=== PATIENT | male | born 1950 | race Caucasian/White ===

== ENCOUNTER 2017-09-06 19:14 | Emergency (ER) | payer OTHER ==
[2017-09-06 19:32] VITALS: BP 131/73
--- NOTE | 2017-09-06 20:04 | ED Physician Documentation ---
PD HPI Fall - Stated complaint Stated Complaint: RT SIDE PX - Chief complaint Chief Complaint: Trauma Ch/Bk - History obtained from History obtained from: Patient - History of Present Illness Mechanism of injury: Lost balance Fall distance: 5 to 10ft Where injury occurred: Home Timing - onset: Enter time (14:30), Today Injury(ies) location: Back Quality of pain: Pain, Aching Associated symptoms: No: LOC, AMS, Neck pain, Weakness Symptoms improve with: Rest Worsens with: Movement Similar symptoms before: Has not had sx before - Additional information Additional information: while working in [employer], patient fell from [employer] to next floor down, his right flank/back struck the attic floor as he fell (and this is the painful injury he sustained) Review of Systems Cardiac: reports: Reviewed and negative Respiratory: reports: Reviewed and negative GI: reports: Reviewed and negative : denies: Hematuria Musculoskeletal: reports: Back pain. denies: Neck pain, Extremity pain Neurologic: reports: Reviewed and negative PD PAST MEDICAL HISTORY - Past Medical History Past Medical History: Yes Cardiovascular: High cholesterol - Past Surgical History Past Surgical History: Yes General: Appendectomy Ortho: Knee replacement - Present Medications Home Medications: Ambulatory Orders Medication Instructions Recorded Confirmed Atorvastatin [Lipitor] 10 mg PO DAILY 10/31/09/06/17 Cyclobenzaprine [Flexeril] 10 mg PO TID PRN #20 tablet 09/06/17 - Allergies Allergies/Adverse Reactions: Allergies Allergy/AdvReac Type Severity Reaction Status Date / Time acetaminophen AdvReac Unknown Verified 09/06/17 19:31 - Social History Does the pt smoke?: No Smoking Status: Never smoker Does the pt drink ETOH?: Yes Does the pt have substance abuse?: No - Immunizations Immunizations are current?: Yes - POLST Patient has POLST: No PD ED PE NORMAL - Vitals Vital signs reviewed: Yes - General General: Alert and oriented X 3, No acute distress, Well developed/nourished - Respiratory Respiratory: No respiratory distress, Clear bilaterally - Abdomen Abdomen: Soft, Non tender - Extremities Extremities: No tenderness to palpate, Normal ROM s pain - Neuro Neuro: Alert and oriented X 3, No motor deficit, No sensory deficit PD ED PE EXPANDED - Back Back: Soft tissue tenderness. No: Vertebral tenderness Back visual: 1 - bruising, abrasion, tenderness Results - Vitals Vitals: Oxygen O2 Source Room air PD MEDICAL DECISION MAKING - ED course Complexity details: reviewed results, re-evaluated patient, considered differential, d/w patient ED course: declines analgesics, says ibuprofen has worked adequately for his pain Departure - Departure Disposition: 01 Home, Self Care Clinical Impression: Injury of back Qualifiers: Encounter type: initial encounter Qualified Code(s): S39.92XA - Unspecified injury of lower back, initial encounter Condition: Good Instructions: ED Contusion Back Follow-Up: ARBAHAM MCDANIELS MD [Primary Care Provider] - (3-5 days if not improving) Prescriptions: Cyclobenzaprine [Flexeril] 10 mg PO TID PRN #20 tablet PRN Reason: Spasms Discharge Date/Time: 09/06/17 20:32
[2017-09-06] MEDS ORDERED: CYCLOBENZAPRINE 10 MG Prepack 2 PO PRN (20:16)
== END 2017-09-06 20:32 | disposition home or self-care (01) ==
LOC: ED 19:14
DX: S30.0XXA Contusion of lower back and pelvis, initial encounter (principal); S30.810A Abrasion of lower back and pelvis, initial encounter; W17.89XA Other fall from one level to another, initial encounter; Y92.008 Other place in unspecified non-institutional (private) residence as the place of occurrence of the external cause
CPT/HCPCS: 99283